=== PATIENT | male | born 1980 | race Caucasian/White ===

== ENCOUNTER 2019-06-12 08:59 | Emergency (ER) | payer SELFPAY ==
--- NOTE | 2019-06-12 09:06 | ED Physician Documentation ---
General Adult - HISTORIAN Historian: patient - HPI Stated Complaint: symptoms of swelling and pain in neck x 1 week Chief Complaint: Neck Pain Onset: days ago (7) Timing: still present Severity: severe (06/06) Further Comments: yes (He denies any injury and reports swelling and pain in his neck. No fever. NO sick contacts. He is able to swallow his secretions with pain. He is eating less) - ROS CONST: denies: fever, recent illness EYES/ENT: sore throat CVS/RESP: denies: chest pain, shortness of breath, cough GI/: none MS/SKIN/LYMPH: neck pain NEURO/PSYCH: denies: headache - PAST HX Past History: none Immunizations: UTD Allergies/Adverse Reactions: Allergies Allergy/AdvReac Type Severity Reaction Status Date / Time No Known Allergies Allergy Verified 06/12/19 09:32 Home Medications: Ambulatory Orders Medication Instructions Recorded NK 06/12/19 - SOCIAL HX Smoking History: cigarettes Alcohol Use: none Drug Use: none - FAMILY HX Family History: No - REVIEWED ASSESSMENTS Nursing Assessment Reviewed: Yes Vitals Reviewed: Yes Progress - Progress Progress: 1012: discussed case with [facility] admission advisor DG 1020: Discussed case with Dr Hawkins while he was in the OR and he will have pt see Dr Ivy Keating 09 DG 1030: Pain 03/06 DG 1100: anxiety is improved DG General Adult Physical Exam - PHYSICAL EXAM GENERAL APPEARANCE: moderate distress EENT: eye inspection normal, pharynx normal, no signs of dehydration NECK: normal inspection RESPIRATORY: no resp distress, chest non-tender, breath sounds normal CVS: reg rate & rhythm, heart sounds normal ABDOMEN: soft BACK: normal inspection, ecchymosis SKIN: other (right sided mandibular/ node grossly enlarged and painful to touch approx 6 cm size raised area ) EXTREMITIES: non-tender, no edema NEURO: oriented X3 Discharge Clincal Impression: Lymphadenopathy of head and neck Referrals: Rajiv Mckeon MD [Primary Care Provider] - 2 Days Comments: 1. Tramadol 50 mg take 1 by mouth every 6 hours as needed for pain 2. Ativan 0.5 mg take 1 by mouth every 12 hours as needed for anxiety 3. GO TO [facility] in am go to orange elevator and go to 2nd floor you appt is with Dr Giles at 0900 be there 30 min early 4. IF YOU CANNOT SWALLOW YOUR SALIVA go to the ER Condition: Fair Disposition: 01 HOME, SELF-CARE Decision to Admit: NO Date of Decison to Admit: 06/12/19 Decision Time: 11:37
[2019-06-12] MEDS ORDERED: 0.9 % SODIUM CHLORIDE 1,000 ML IV ONE ×2 (09:14→10:48)
[2019-06-12] MEDS ORDERED: fentaNYL CITRATE/PF 100 MCG/2 ML INJ. IVP ONE ×2 (09:14→10:00)
[2019-06-12 09:23] LABS: BASOPHILS % 0.6 % (0.0-1.5); NEUTROPHILS # 7.5 # k/uL (1.4-7.7)
[2019-06-12 09:35] LABS: eGFR (Non-African) > 60
--- NOTE | 2019-06-12 10:07 | Diagnostic Imaging Report ---
PATIENT MR#: [id number] PATIENT PATIENT NAME: DAYLIN CHRISTIANSEN DATE OF : 1980 REFERRING PHYSICIAN: Camilla Yu EXAM DATE: 06/12/2019 ACCESSION NUMBER: [id number] EXAM DESCRIPTION: CT NECK SOFT TISSUE W/ Exam: CT of the soft tissue neck with contrast. History: Right-sided swelling for 1 week. Axial images through the soft tissue the neck after IV infusion of 90 cc Omnipaque is submitted along with sagittal and coronal reformatted images. The epiglottis is of normal configuration. No pharyngeal ballooning or subglottic stenosis is identi fied. The thyroid gland appears heterogeneous in attenuation and enhancement. An in homogeneous mass with heterogeneou s attenuation is identified i superior to the right submandibular gland measuring 3.8 x 3.3 x 3.4 cm in size. Surroun ding soft tissue swelling is noted with encroachment on the right side of the vallecular noted. Lymphadenopathy infer ior to the mass is identified. Shotty lymphadenopathy in the Danna carotid and posterior carotid spaces is also identifi ed. The parotid glands are normal attenuation and enhancement. Mild mucoperiosteal thickening in the floor of the ma xillary sinuses are noted bilaterally. Nasal septal deviation to the right appears to be developmental in nature. 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 The opacified vascular structures are normal caliber. 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 Lymphadenopathy adjacent to the mass and in the submandibular regions and in the Danna carotid and pos terior carotid spaces are noted. Soft tissue encroachment on the left side of the vallecular is noted. Mucoperiosteal thickening in the floor of the maxillary sinuses. Nasal septal deviation to the right. Bilateral middle terminate nasal jaime bullosa. Read by: Dr. Raz Zamudio Transcribed by: Transcribed Date: Electronically signed by: Dr. Raz Zamudio Date signed: 06/12/2019 10:06:29 AM
[2019-06-12] MEDS ORDERED: LORazepam 2 MG/ML VIAL IV ONE (10:38)
[2019-06-12 12:13] VITALS: BP 127/84
== END 2019-06-12 11:50 | disposition home or self-care (01) ==
LOC: ED 08:59
DX: R59.0 Localized enlarged lymph nodes (principal)
CPT/HCPCS: 70491; 80053; 85025; 96361; 96374; 96375; 96376; 99284; J2060; J3010; J7030; Q9967; S1016